=== PATIENT | female | born 1980 | race Hispanic/Latino ===

== ENCOUNTER 2022-04-28 23:07 | Inpatient (IN) | payer OTHER ==
[2022-04-29 01:14] LABS: #Eosinphils 0.1 thou/uL (0.0-0.7); #Lymphocytes 2.7 thou/uL (1.20-3.40); #Monocytes 0.6 thou/uL (0.11-0.59); #Neutrophils 4.8 thou/uL (1.40-6.50); %Basophils 0.1 % (0.0-1.0); %Eosinophils 0.9 % (0.0-10.0); %Lymphocytes 33.4 % (21.0-51.0); %Monocytes 6.9 % (0.0-10.0); %Neutrophils 58.8 % (42.0-75.0); Hemoglobin 12.9 g/dL (12.0-16.0); Mean Corpuscular HGB CONC 32.7 g/dL (32.0-36.0); Mean Corpuscular Hemoglobin 28.5 pg (27.0-31.0); Mean Platelet Volume 7.6 fL (7.4-10.4); Platelet Count 348 thou/uL (130-400); RBC Distribution Width 16.2 % (11.5-14.5); Red Blood Cell (RBC) Count 4.53 mill/uL (4.20-5.40); White Blood Cell (WBC) Count 8.1 thou/uL (4.8-10.8)
[2022-04-29 01:22] LABS: Bilirubin Negative (Negative); Blood, Urine Negative (Negative); Clarity Clear (Clear); Glucose, Urine (Dipstick) Normal (Negative); Ketone, Urine Trace mg/dL (Negative); Leukocyte Negative Leu/uL (Negative); Nitrite Negative (Negative); Protein, Urine (Dipstick) Negative (Neg-Trace); Specific Gravity, Urine 1.013 (1.002-1.036); Urobilinogen 3 mg/dL (Less than 2)
[2022-04-29 01:40] LABS: ALT (SGPT) 332 U/L (8-55); AST (SGOT) 821 U/L (5-34); Albumin 4.1 g/dL (3.5-5.0); Alkaline Phosphatase 147 U/L (40-110); Anion Gap 15 mmol/L (10-20); BUN (Urea Nitrogen) 19 mg/dL (7.0-18.7); Calc. Creatinine Clearance 0 mL/min (70-130); Calcium 9.1 mg/dL (7.8-10.44); Carbon Dioxide 22 mmol/L (22-29); Chloride 99 mmol/L (98-107); Globulin 3.3 g/dL (2.4-3.5); Glucose 91 mg/dL (70-105); Lipase 530 U/L (8-78); Potassium 3.7 mmol/L (3.5-5.1); Protein, Total 7.4 g/dL (6.0-8.3); Sodium 132 mmol/L (136-145)
[2022-04-29] MEDS ORDERED: Ondansetron PF 4 MG/2 ML Vial ONE (01:42)
[2022-04-29] MEDS ORDERED: Morphine 4 MG/ML VIAL ONE ×2 (01:42→04:28)
[2022-04-29 02:01] LABS: Pregnancy Test - Urine (BHCG) Negative (Negative); Pregu Control Background? CLEAR/WHITE (CLR/WHITE); Pregu Control Bar Appear? YES (CONTROL BAR); Specific Gravity 1.013 (1.002-1.036)
[2022-04-29] MEDS ORDERED: Ketorolac Tromethamine 60 MG/2 ML VIAL IM PRN (05:07)
[2022-04-29 06:05] LABS: Bacteria/HPF None Seen HPF (None Seen); RBC/HPF 0-3 HPF (0-3); WBC/HPF 0-3 HPF (0-3)
[2022-04-29 06:25] LABS: SARS-CoV-2 NAA Rapid Test Not Detected (NotDetected)
[2022-04-29 06:41] LABS: Acetaminophen Less than 10.0 mcg/mL (10.0-30.0); Alcohol Less than 10 mg/dL (Less than 10); Salicylate Less than 8.0 mg/dL (15.0-30.0)
[2022-04-29] MEDS: Lactated Ringer's 1,000 ML IV SCH ×3 (06:44→22:13)
[2022-04-29 07:01] LABS: Prothrombin Time 13.7 sec (12.0-14.7)
[2022-04-29 07:37] LABS: HBCM Index 0.09 S/CO (0-0.79); HBSAg Index 0.25 S/CO (0-0.99); HIV (1/2) Antibody/Antigen Non-Reactive (NonReactive); Hep A IgM AB Non-Reactive (NonReactive); Hep A IgM S/CO 0.28 S/CO (0-0.79); Hep B Surf Ag Non-Reactive S/CO (NonReactive); Hepatitis B Core IgM Abs Non-Reactive (NonReactive)
[2022-04-29 08:20] LABS: Hep C IgG Ab Reflex HepC Qnt (NonReactive); Hep C Index 6.66 S/CO (0-0.79)
[2022-04-29] MEDS: Dicyclomine 10 MG CAP PO SCH ×4 (09:32→22:13)
[2022-04-29] MEDS: Enoxaparin Sodium 40 MG/0.4 ML SYRINGE SC SCH (09:33)
[2022-04-29] MEDS: Ondansetron ODT 4 MG TAB PO PRN ×2 (09:33→19:15)
[2022-04-29] MEDS: Sucralfate 1 GM/10 ML UDCUP PO PRN ×2 (09:34→22:13)
[2022-04-29] MEDS: Pantoprazole 40 MG VIAL IVP SCH (10:17)
[2022-04-29] MEDS: Morphine 2 MG/ML VIAL SLOW IVP PRN ×4 (10:17→19:14)
[2022-04-29 11:04] LABS: Syphilis Antibody Nonreactive (Nonreactive); Syphilis Antibody Index 0.81 S/CO (<1.00 Non-Reactive)
[2022-04-29] MEDS ORDERED: GASTROGRAFIN 30 ML BOT ONE (12:13)
[2022-04-29] MEDS ORDERED: ISOVUE-370 76%-LOCM 1 ML ONE (12:13)
[2022-04-29 15:15] VITALS: BMI 35.5
[2022-04-29] MEDS: Prochlorperazine Maleate 5 MG TAB PO PRN (22:13)
[2022-04-29] MEDS: Morphine 4 MG/ML VIAL SLOW IVP PRN (22:29)
[2022-04-30] MEDS: Prochlorperazine Maleate 5 MG TAB PO PRN (04:08)
[2022-04-30] MEDS: Morphine 4 MG/ML VIAL SLOW IVP PRN ×2 (04:10→08:17)
[2022-04-30 05:48] LABS: ALT (SGPT) 590 U/L (8-55); AST (SGOT) 633 U/L (5-34); Albumin 3.3 g/dL (3.5-5.0); Alkaline Phosphatase 196 U/L (40-110); Anion Gap 12 mmol/L (10-20); BUN (Urea Nitrogen) 7 mg/dL (7.0-18.7); Bilirubin, Total 1.4 mg/dL (0.2-1.2); Calc. Creatinine Clearance 194 mL/min (70-130); Calcium 8.8 mg/dL (7.8-10.44); Carbon Dioxide 22 mmol/L (22-29); Chloride 105 mmol/L (98-107); Globulin 3.1 g/dL (2.4-3.5); Glucose 88 mg/dL (70-105); Potassium 4.2 mmol/L (3.5-5.1); Protein, Total 6.4 g/dL (6.0-8.3); Sodium 135 mmol/L (136-145)
[2022-04-30 06:18] LABS: Anisocytosis SLIGHT = 6-15 cells (100X) (0-5/hpf); Band 3 % (5-11); Eosinophils 1 % (0-10); Hemoglobin 12.3 g/dL (12.0-16.0); Lymphocytes 49 % (21-51); MDiff Complete? YES; Mean Corpuscular HGB CONC 32.2 g/dL (32.0-36.0); Mean Corpuscular Hemoglobin 28.3 pg (27.0-31.0); Mean Platelet Volume 8.8 fL (7.4-10.4); Monocytes 6 % (0-10); Neutrophil 41 % (42-75); Platelet Count 201 thou/uL (130-400); Platelet Morphology Comment PLT clumps seen-ADEQ; RBC Distribution Width 16.2 % (11.5-14.5); Red Blood Cell (RBC) Count 4.33 mill/uL (4.20-5.40); White Blood Cell (WBC) Count 4.1 thou/uL (4.8-10.8)
[2022-04-30] MEDS: Lactated Ringer's 1,000 ML IV SCH ×2 (07:39→11:11)
[2022-04-30] MEDS: Ondansetron ODT 4 MG TAB PO PRN (08:14)
[2022-04-30] MEDS: Dicyclomine 10 MG CAP PO SCH (08:14)
[2022-04-30] MEDS: Enoxaparin Sodium 40 MG/0.4 ML SYRINGE SC SCH (08:16)
[2022-04-30] MEDS: Pantoprazole 40 MG VIAL IVP SCH (08:17)
[2022-04-30] MEDS ORDERED: Metoclopramide HCl 10 MG/2 ML VIAL IVP SCH (08:30)
[2022-04-30 09:37] VITALS: BP 133/78; TEMP 97.7
[2022-05-02 18:37] LABS: Hep C PCR-Quant HCV Not Detected IU/mL (.)
== END 2022-04-30 11:10 | disposition short-term general hospital (02) | DRG 439 ==
LOC: EEVIPCON 23:07 → ERS 23:07 → ERHOLD 04-29 04:31 → SJJU 04-29 08:18 → OBSVTOIN 04-29 12:36
PROVIDERS: ADMIT Student in an Organized Health Care Education/Training Program; ATTEND Student in an Organized Health Care Education/Training Program
DX: K85.90 Acute pancreatitis without necrosis or infection, unspecified (principal); K83.09 Other cholangitis; F41.9 Anxiety disorder, unspecified; F15.11 Other stimulant abuse, in remission; F10.10 Alcohol abuse, uncomplicated; R74.01 Elevation of levels of liver transaminase levels; F31.9 Bipolar disorder, unspecified; F43.10 Post-traumatic stress disorder, unspecified; K73.9 Chronic hepatitis, unspecified; I87.8 Other specified disorders of veins; K29.70 Gastritis, unspecified, without bleeding; K86.89 Other specified diseases of pancreas; K83.9 Disease of biliary tract, unspecified; Z20.822 Contact with and (suspected) exposure to COVID-19; Z79.899 Other long term (current) drug therapy; Z98.84 Bariatric surgery status; Z90.49 Acquired absence of other specified parts of digestive tract; Z98.890 Other specified postprocedural states
CPT/HCPCS: 36415; 74177; 74181; 76705; 80053; 80074; 80307; 81025; 83690; 84484; 85025; 85610; 86780; 87389; 87522; 93005; 96372; 96374; 96375; 96376; C9113; G0378; J1650; J2270; J2405; J2765; J7120; Q0162; Q0164; Q9963; Q9966; U0002